=== PATIENT | male | born 1950 | race Caucasian/White ===

== ENCOUNTER → 2017-12-14 16:07 | Outpatient (CLI) | payer MEDICARE, MEDICAID | END | disposition home or self-care (01) | LOC: D.CT 16:07 | DX: M79.672 Pain in left foot (principal) ==

== ENCOUNTER 2018-02-27 19:43 | Emergency (ER) | payer MEDICARE, MEDICAID ==
[~2018-02-27] VITALS: Ht 167.6 cm; Wt 77.3 kg
[2018-02-27 19:46] VITALS: Ht 167.6 cm; Wt 77.3 kg
[2018-02-27] MEDS ORDERED: LISINOPRIL2.5 MG (19:47)
[2018-02-27] MEDS ORDERED: ZOCOR5 MG (19:48)
[2018-02-27] MEDS ORDERED: TYLENOL W/CODEI1 TAB PO (20:22)
[2018-02-27 21:56] VITALS: BP 141/83
== END 2018-02-27 21:53 | disposition home or self-care (01) ==
LOC: D.ER 19:43
DX: S00.31XA Abrasion of nose, initial encounter (principal); V73.5XXA Driver of bus injured in collision with car, pick-up truck or van in traffic accident, initial encounter; Y93.89 Activity, other specified; Y92.410 Unspecified street and highway as the place of occurrence of the external cause; S00.11XA Contusion of right eyelid and periocular area, initial encounter

== ENCOUNTER → 2018-03-17 17:02 | Outpatient (CLI) | payer MEDICARE, MEDICAID ==
[2018-02-27 19:46] VITALS: BMI 27.5
[~2018-03-17 17:02] MED LIST: LISINOPRIL2.5 MG; TYLENOL W/CODEI1 TAB PO; ZOCOR5 MG
== END | disposition home or self-care (01) ==
LOC: D.LABREF 17:02
DX: M17.11 Unilateral primary osteoarthritis, right knee (principal); Z11.8 Encounter for screening for other infectious and parasitic diseases

== ENCOUNTER 2018-04-07 11:59 | Inpatient (IN) | payer MEDICARE, MEDICAID ==
[~2018-04-07] VITALS: Ht 167.6 cm; Wt 77.3 kg
[2018-04-13] MEDS ORDERED: LISINOPRIL10 MG PO (14:11)
[2018-04-13] MEDS ORDERED: ZOCOR20 MG PO (14:12)
[2018-04-14 11:42] LABS: BASOPHILS 0.2 % (0-2); EOSINOPHILS 2.2 % (0-7); HEMATOCRIT 40.8 % (42.0-54.0); HEMOGLOBIN 13.7 g/dL (13.5-17.5); IMMATURE GRANULOCYTES 0.1 % (0-5); LYMPHOCYTES 23.5 % (15-50); MCH 28.7 pg (26.0-34.0); MCHC 33.6 g/dL (31.0-37.0); MCV 85.4 fL (80.0-100.0); MONOCYTES 6.2 % (2-11); NEUTROPHILS 67.8 % (40-80); PLATELET COUNT 232 10x3/uL (130-400); RBC 4.78 10x6/uL (4.20-6.10); WBC 8.7 10x3/uL (4.8-10.8)
[2018-04-14 11:53] LABS: CALC OSMOLALITY 279 mosm/kg (275-300); CALCIUM 8.7 mg/dL (8.5-10.1); CARBON DIOXIDE 26.3 mmol/L (21.0-32.0); CHLORIDE - SERUM 102 mmol/L (98-107); CREATININE - SERUM 0.8 mg/dL (0.6-1.3); GLUCOSE 99 mg/dL (74-106); POTASSIUM - SERUM 4.4 mmol/L (3.5-5.1); SODIUM 138 mmol/L (136-145); UREA NITROGEN 23 mg/dL (7-18); eGFR NON AFRICAN AMERICAN > 90 mL/min (90-120)
[2018-04-14 12:04] LABS: APTT 26.7 SECONDS (22.8-39.4); INR 0.95 (0.85-1.17); PROTIME 12.2 SECONDS (11.6-15.0)
[2018-04-14 12:19] LABS: APPEARANCE CLEAR (CLEAR); BILIRUBIN NEGATIVE (NEGATIVE); COLOR YELLOW (YELLOW); GLUCOSE NEGATIVE (NEGATIVE); KETONE NEGATIVE (NEGATIVE); NITRITE NEGATIVE (NEGATIVE); PROTEIN 1+ mg/dL (NEGATIVE); RED CELLS - URINE OCC /hpf (0-5); SPECIFIC GRAVITY 1.015 (1.005-1.020); UROBILINOGEN NORMAL (NORMAL); WHITE CELLS - URINE RARE /hpf (0-5)
[2018-04-14 12:20] LABS: BACTERIA FEW /hpf (NONE SEEN); EPITHELIAL CELLS OCC /hpf (0-5); MUCUS <1+ /lpf (NONE SEEN)
[2018-04-19] VITALS (11 sets, daily range): BP systolic 91–157; BP diastolic 50–87; Ht 167.6 cm; Wt 77.3 kg
--- NOTE | 2018-04-19 13:02 | OP ---
PATIENT NAME: AHMET KIM MEDICAL RECORD: [id number] :46 LOCATION:D.[facility] [place] ADMISSION DATE:04/19/18 SURGEON: THIAGO CHOE MD DATE OF OPERATION: 04/19/2018 PREOPERATIVE DIAGNOSIS: Severe osteoarthritis of the right knee. POSTOPERATIVE DIAGNOSIS: Severe osteoarthritis of the right knee. PROCEDURE: Right total knee arthroplasty. SURGEON: Thiago Choe MD REHAB SPECIALIST: DEXTER FLOR APN INTRAOPERATIVE COMPLICATIONS: None. SUMMARY OF PATHOLOGIC FINDINGS: The patient had severe tricompartmental osteoarthritis. IMPLANTS USED: Rehan Triathlon press fit total knee arthroplasty, size 5 distal femoral component, 5 tibial component, 9 polyethylene insert, and a 31 press fit patella. OPERATIVE SUMMARY IN DETAIL: After obtaining the appropriate preoperative orthopedic surgery consents as well as anesthetic consultation, evaluation and clearance, the patient was brought to the operating room and placed on the operating table in supine position. After general laryngeal mask airway was administered, tourniquet was placed on the proximal aspect of the right lower extremity. Right lower extremity was prepped and draped in routine sterile fashion. The leg was elevated and exsanguinated, tourniquet was inflated to 350 mmHg. Routine midline incision was taken for a paramedian arthrotomy. Patella was everted, distal femur was exposed. Soft tissue excision was done in the usual fashion. An intramedullary guide hole was created for distal intramedullary guided cuts. Distal femoral was cut. Tibia was then completely exposed. Further meniscectomy was performed followed by creation of intramedullary guide hole for a proximal tibial cut using intramedullary guidance. Proximal tibia was cut. Appropriate measurements were taken. Distal femoral chamfer cuts were made. Trials were put into place corresponding to the above-mentioned implants, taken through range of motion and found to be stable in all planes. Distal femoral and proximal tibial final preparations were followed by excision of the arthritic surface of the patella. Final patellar preparations were made for the 31 press fit button. After the knee was thoroughly irrigated with pulsatile lavage, the bony ends were dried. Final components were placed. The knee was taken through range of motion and found to be stable in all planes, including good patellar tracking. Wound was further irrigated and instilled with a gram of vancomycin and a gram of tobramycin paramedian arthrotomy was closed with #2 Ethibond by Dexter Flor as was final closure with #1 Vicryl, 2-0 Vicryl, and skin arnav. Sterile dressings were applied. Tourniquet was deflated. The patient was awakened, taken to recovery room in stable condition. All final needle and sponge counts were correct. TRANSINT:[id number] Voice Confirmation ID: [id number] DOCUMENT ID: [id number] OPERATIVE REPORT [id number] AHMET KIM MD, THIAGO JAIN at 1302 CC: [id number] DICTATION DATE: 04/19/18 1146 DERMATOLOGIST: 04/19/18 1245 ADM IN [place] [id number] [place] [id number]
[2018-04-20 04:00] VITALS: BP 138/74
[2018-04-20 04:46] LABS: HEMATOCRIT 37.4 % (42.0-54.0); HEMOGLOBIN 12.5 g/dL (13.5-17.5); MCH 28.5 pg (26.0-34.0); MCHC 33.4 g/dL (31.0-37.0); MCV 85.4 fL (80.0-100.0); MEAN PLATELET VOLUME 10.1 fL (7.4-10.4); RBC 4.38 10x6/uL (4.20-6.10)
[2018-04-20 09:23] VITALS: BP 152/84
[2018-04-20 14:21] VITALS: BP 132/71
[2018-04-20 17:18] VITALS: BP 151/56
[2018-04-20 20:00] VITALS: BP 135/66
[2018-04-21 04:00] VITALS: BP 149/71
[2018-04-21 05:13] LABS: HEMOGLOBIN 11.5 g/dL (13.5-17.5); MCH 27.9 pg (26.0-34.0); MCHC 32.9 g/dL (31.0-37.0); MEAN PLATELET VOLUME 10.3 fL (7.4-10.4); RBC 4.12 10x6/uL (4.20-6.10); RDW 14.5 % (11.5-14.5); WBC 9.5 10x3/uL (4.8-10.8)
[2018-04-21 08:00] VITALS: BP 153/68
--- NOTE | 2018-04-21 11:59 | MORECARE ---
CASE MANAGEMENT DISCHARGE SUMMARY PATIENT: AHMET KIM UNIT: [id number] ADM DATE: 04/19/18 AGE: 68 : 48 SEX: M ROOM/BED: D.2210 AUTHOR: KENNEDY,DOC PHYSICIAN: REFERRING PHYSICIAN: THIAGO CHOE MD DATE OF SERVICE: 04/21/18 Discharge Plan Patient Name: AHMET KIM Facility: [facility]:[place] : 1950 Planned Disposition: Home Health Service Anticipated Discharge Date: Discharge Date: Expected LOS: Initial Reviewer: [email or web address] Initial Review Date: 04/19/2018 Generated: 04/21/18 12:59 pm Comments DCP- Discharge Planning Updated by [email or web address]: Debbie Godoy on 04/21/18 10:[address] Patient's address is [address] [place] [address] DCP- Discharge Planning Updated by [email or web address]: Debbie Godoy on 04/21/18 10:[address] Patient Name: AHMET KIM Admission Status: Elective Accout number: [id number] Admission Date: 04-19-2018 : 1950 Admission Diagnosis: Attending: THIAGO CHOE Current LOS: 2 Anticipated DC Date: Planned Disposition: Home Health Service Primary Insurance: [facility] MEDICARE SOLUTIONS Discharge Planning Comments: CM met with patient to complete initial dc planning assessment. CM educated patient on the CM role and verbal consent given by patient to complete assessment. Patient lives at home with family in [place] and plans to return there at [place]. His family will be the one to drive him home. He anticipates to be discharged tomorrow. IMM served and explained. At discharge patient plans to return home with home health and feels this is a safe discharge. CM discussed availability of home health, rehab services, and medical equipment. [facility] for [facility]) [facility]) [facility]. He has a shower chair, walker, CPM at his house already that MD set up prior to surgery. CM will call and sent up HH with PT. CM will continue to follow and will assist as needed with dc plans/needs. Dairy Chemist: Debbie Godoy DCPIA - Discharge Planning Initial Assessment Updated by [email or web address]: Debbie Godoy on 04/21/18 11:52 am * Is the patient Alert and Oriented? Yes * How many steps to enter\exit or inside your home? * PCP JANICE * [facility]acy [facility] * Preadmission Environment Home with Family * ADLs Independent * Equipment Bedside Commode Rolling Walker Shower Chair Tub Bench Walker * Other Equipment CPM * List name and contact numbers for known caregivers / representatives who currently or will assist patient after discharge: FRANCIA ABDIALEXWALLACE [phone] * Verbal permission to speak to the caregivers and representatives has been obtained from the patient. N/A * Community resources currently utilized None * Additional services required to return to the preadmission environment? Yes * Can the patient safely return to the preadmission environment? Yes * Has this patient been hospitalized within the prior 30 days at any hospital? No Coverage Notice Reviewer: [id number] - Debbie Godoy Notice Issued Date-Time: 04/21/2018 11:45 Notice Type: IM Discharge Notice Notice Delivered To: Patient Relationship to Patient: Fire Department Battalion Chief Name: Delivery Method: HAND - Hand Delivered Karine Days: Prior Verbal Notification: Recipient Understood Notice: Yes Recipient Signature: Yes Med Rec Note Co-signed by Attending: Coverage Notice Comment: Patient Name: AHMET KIM Page 03895 at 1159 All edits/amendments must be made on the electronic document DICTATION DATE: 04/21/18 115 SCIENTIFIC ILLUSTRATOR: KAILEY 04/21/18 1158 RPT#: [id number] [place] DATE: STATUS: ADM IN [facility] [address] [place] [address] END OF REPORT
[2018-04-21 13:25] VITALS: BP 158/80
[2018-04-21 16:30] VITALS: BP 151/67
[2018-04-21 20:41] VITALS: BP 133/66
[2018-04-22 05:52] VITALS: BP 135/88
[2018-04-22] MEDS ORDERED: ELIQUIS2.5 MG PO ×2 (08:19→13:44)
[2018-04-22] MEDS ORDERED: HYDROCODON-ACE1 EA10 PO (08:19)
[2018-04-22 09:04] VITALS: BP 125/73
[2018-04-22 13:33] VITALS: BP 160/93
--- NOTE | 2018-04-22 13:57 | MORECARE ---
CASE MANAGEMENT DISCHARGE SUMMARY PATIENT: AHMET KIM UNIT: [id number] ADM DATE: 04/19/18 AGE: 68 : 48 SEX: M ROOM/BED: D.2210 AUTHOR: KENNEDY,DOC PHYSICIAN: REFERRING PHYSICIAN: THIAGO CHOE MD DATE OF SERVICE: 04/22/18 Discharge Plan Patient Name: AHMET KIM Facility: [facility]:[place] : 1950 Planned Disposition: Home Health Service Anticipated Discharge Date: Discharge Date: Expected LOS: Initial Reviewer: [email or web address] Initial Review Date: 04/19/2018 Generated: 04/22/18 2:57 pm Comments DCP- Discharge Planning Updated by [email or web address]: Debbie Godoy on 04/21/18 10:[address] Patient's address is [address] [place] [address] DCP- Discharge Planning Updated by [email or web address]: Debbie Godoy on 04/21/18 10:[address] Patient Name: AHMET KIM Admission Status: Elective Accout number: [id number] Admission Date: 04-19-2018 : 1950 Admission Diagnosis: Attending: THIAGO CHOE Current LOS: 2 Anticipated DC Date: Planned Disposition: Home Health Service Primary Insurance: [facility] MEDICARE SOLUTIONS Discharge Planning Comments: CM met with patient to complete initial dc planning assessment. CM educated patient on the CM role and verbal consent given by patient to complete assessment. Patient lives at home with family in [place] and plans to return there at [place]. His family will be the one to drive him home. He anticipates to be discharged tomorrow. IMM served and explained. At discharge patient plans to return home with home health and feels this is a safe discharge. CM discussed availability of home health, rehab services, and medical equipment. [facility] for home health 1) [facility] 2) [facility]. He has a shower chair, walker, CPM at his house already that MD set up prior to surgery. CM will call and sent up HH with PT. CM will continue to follow and will assist as needed with dc plans/needs. Pharmacy Helper: Debbie Godoy DCPIA - Discharge Planning Initial Assessment Updated by [email or web address]: Debbie Godoy on 04/21/18 11:52 am * Is the patient Alert and Oriented? Yes * How many steps to enter\exit or inside your home? * PCP JANICE * [facility]acy [facility] * Preadmission Environment Home with Family * ADLs Independent * Equipment Bedside Commode Rolling Walker Shower Chair Tub Bench Walker * Other Equipment CPM * List name and contact numbers for known caregivers / representatives who currently or will assist patient after discharge: FRANCIA KIM [phone] * Verbal permission to speak to the caregivers and representatives has been obtained from the patient. N/A * Community resources currently utilized None * Additional services required to return to the preadmission environment? Yes * Can the patient safely return to the preadmission environment? Yes * Has this patient been hospitalized within the prior 30 days at any hospital? No External Providers [facility] [place] Next Contact Date: Service Request Date: Service Type: Resolution: Reviewer: Comments: Coverage Notice Reviewer: [id number] - Debbie Godoy Notice Issued Date-Time: 04/21/2018 11:45 Notice Type: IM Discharge Notice Notice Delivered To: Patient Relationship to Patient: Seamless Tube Roller Name: Delivery Method: HAND - Hand Delivered Karine Days: Prior Verbal Notification: Recipient Understood Notice: Yes Recipient Signature: Yes Med Rec Note Co-signed by Attending: Coverage Notice Comment: Last DP export: 04/21/18 10:59 a Patient Name: AHMET KIM Page 28583 at 1357 All edits/amendments must be made on the electronic document DICTATION DATE: 04/22/18 1357 WEB CONTENT EXECUTIVE: KAILEY 04/22/18 1357 RPT#: [id number] DC DATE: STATUS: ADM IN [facility] [address] [place] [address] END OF REPORT
--- NOTE | 2018-04-22 14:08 | MORECARE ---
CASE MANAGEMENT DISCHARGE SUMMARY PATIENT: AHMET KIM UNIT: [id number] ADM DATE: 04/19/18 AGE: 68 : 48 SEX: M ROOM/BED: D.2210 AUTHOR: KENNEDY,DOC PHYSICIAN: REFERRING PHYSICIAN: THIAGO CHOE MD DATE OF SERVICE: 04/22/18 Discharge Plan Patient Name: AHMET KIM Facility: [facility]:[place] : 1950 Planned Disposition: Home Health Service Anticipated Discharge Date: Discharge Date: Expected LOS: Initial Reviewer: [email or web address] Initial Review Date: 04/19/2018 Generated: 04/22/18 3:08 pm Comments DCP- Discharge Planning Updated by [id number]: Debbie Godoy on 04/22/18 12:[address] Patient discharging home today with [facility], not other needs identified. CM to follow and assist as needed DCP- Discharge Planning Updated by [email or web address]: Debbie Godoy on 04/21/18 10:[address] Patient's address is [address] [place] [address] DCP- Discharge Planning Updated by [email or web address]: Debbie Godoy on 04/21/18 10:[address] Patient Name: AHMET KIM Admission Status: Elective Accout number: [id number] Admission Date: 04-19-2018 : 1950 Admission Diagnosis: Attending: THIAGO CHOE Current LOS: 2 Anticipated DC Date: Planned Disposition: Home Health Service Primary Insurance: [facility] MEDICARE SOLUTIONS Discharge Planning Comments: CM met with patient to complete initial dc planning assessment. CM educated patient on the CM role and verbal consent given by patient to complete assessment. Patient lives at home with family in [place] and plans to return there at [place]. His family will be the one to drive him home. He anticipates to be discharged tomorrow. IMM served and explained. At discharge patient plans to return home with home health and feels this is a safe discharge. CM discussed availability of home health, rehab services, and medical equipment. [facility] for home health 1) [facility] 2) [facility]. He has a shower chair, walker, CPM at his house already that MD set up prior to surgery. CM will call and sent up HH with PT. CM will continue to follow and will assist as needed with dc plans/needs. Records Clerk: Debbie Godoy DCPIA - Discharge Planning Initial Assessment Updated by [email or web address]: Debbie Godoy on 04/21/18 11:52 am * Is the patient Alert and Oriented? Yes * How many steps to enter\exit or inside your home? * PCP JANICE * [facility] * Preadmission Environment Home with Family * ADLs Independent * Equipment Bedside Commode Rolling Walker Shower Chair Tub Bench Walker * Other Equipment CPM * List name and contact numbers for known caregivers / representatives who currently or will assist patient after discharge: FRANCIA SHELLIWALLACE [phone] * Verbal permission to speak to the caregivers and representatives has been obtained from the patient. N/A * Community resources currently utilized None * Additional services required to return to the preadmission environment? Yes * Can the patient safely return to the preadmission environment? Yes * Has this patient been hospitalized within the prior 30 days at any hospital? No Coverage Notice Reviewer: [id number] - Debbie Godoy Notice Issued Date-Time: 04/21/2018 11:45 Notice Type: IM Discharge Notice Notice Delivered To: Patient Relationship to Patient: Global Logistics Analyst Name: Delivery Method: HAND - Hand Delivered Karine Days: Prior Verbal Notification: Recipient Understood Notice: Yes Recipient Signature: Yes Med Rec Note Co-signed by Attending: Coverage Notice Comment: Last DP export: 04/22/18 12:57 p Patient Name: AHMET KIM Page 25294 at 1408 All edits/amendments must be made on the electronic document DICTATION DATE: 04/22/18 1408 RAIL GRINDER: KAILEY 04/22/18 1408 RPT#: [id number] DC DATE: STATUS: ADM IN [facility] [address] [place] [address] END OF REPORT
== END 2018-04-22 18:31 | disposition home health service (06) | DRG 470 ==
LOC: D.SDCHOLD 04-14 10:00 → D.MS 04-19 08:00 → D.SDCHOLD 04-19 08:00 → D.MS 04-19 12:59 → D.SDCHOLD 04-19 14:00 → D.MS 04-22 18:31
PROVIDERS: ADMIT Orthopaedic Surgery
PROC: 0SRC0JZ Replacement of Right Knee Joint with Synthetic Substitute, Open Approach (ICD-10-PCS; principal; 2018-04-19 10:00)
DX: M17.11 Unilateral primary osteoarthritis, right knee (principal); I10 Essential (primary) hypertension

== ENCOUNTER → 2018-06-23 19:41 | Outpatient (CLI) | payer MEDICARE, MEDICAID ==
[2018-04-19 16:04] VITALS: BMI 27.5
[~2018-06-23 19:41] MED LIST changes: +ELIQUIS2.5 MG PO; +HYDROCODON-ACE1 EA10 PO; +LISINOPRIL10 MG PO; +ZOCOR20 MG PO
== END | disposition home or self-care (01) ==
LOC: D.LABREF 19:41
PROVIDERS: ATTEND Orthopaedic Surgery
DX: M17.12 Unilateral primary osteoarthritis, left knee (principal); Z11.8 Encounter for screening for other infectious and parasitic diseases

== ENCOUNTER 2018-07-07 11:48 | Inpatient (IN) | payer MEDICARE, MEDICAID ==
[~2018-07-07] VITALS: Ht 167.6 cm; Wt 79.5 kg
[2018-07-28 11:02] LABS: BASOPHILS 0.3 % (0-2); EOSINOPHILS 3.8 % (0-7); HEMATOCRIT 38.7 % (42.0-54.0); IMMATURE GRANULOCYTES 0.1 % (0-5); LYMPHOCYTES 26.8 % (15-50); MCH 27.3 pg (26.0-34.0); MCHC 33.6 g/dL (31.0-37.0); MCV 81.1 fL (80.0-100.0); MEAN PLATELET VOLUME 9.8 fL (7.4-10.4); MONOCYTES 6.5 % (2-11); NEUTROPHILS 62.5 % (40-80); PLATELET COUNT 188 10x3/uL (130-400); RBC 4.77 10x6/uL (4.20-6.10); RDW 15.4 % (11.5-14.5); WBC 7.6 10x3/uL (4.8-10.8)
[2018-07-28 11:04] LABS: CALC OSMOLALITY 274 mosm/kg (275-300); CALCIUM 8.8 mg/dL (8.5-10.1); CHLORIDE - SERUM 102 mmol/L (98-107); CREATININE - SERUM 0.9 mg/dL (0.6-1.3); GLUCOSE 94 mg/dL (74-106); POTASSIUM - SERUM 4.2 mmol/L (3.5-5.1); SODIUM 136 mmol/L (136-145); UREA NITROGEN 22 mg/dL (7-18); eGFR NON AFRICAN AMERICAN 89 mL/min (90-120)
[2018-07-28 11:05] LABS: APPEARANCE HAZY (CLEAR); BILIRUBIN NEGATIVE (NEGATIVE); COLOR YELLOW (YELLOW); GLUCOSE NEGATIVE (NEGATIVE); KETONE NEGATIVE (NEGATIVE); NITRITE NEGATIVE (NEGATIVE); PROTEIN NEGATIVE (NEGATIVE); SPECIFIC GRAVITY 1.005 (1.005-1.020); UROBILINOGEN NORMAL (NORMAL)
[2018-07-28 11:06] LABS: APTT 26.1 SECONDS (22.8-39.4); INR 1.01 (0.85-1.17); PROTIME 12.8 SECONDS (11.6-15.0)
[2018-07-28] MEDS ORDERED: IBUPROFEN400 MG PO (11:24)
[2018-08-02 10:12] VITALS: BP 182/85; BMI 27.5
[2018-08-02 13:26] VITALS: BP 154/81
[2018-08-02 15:00] VITALS: BP 154/81; Ht 167.6 cm; Wt 79.5 kg
[2018-08-02 17:39] VITALS: BP 128/70
[2018-08-02 20:34] VITALS: BP 144/67
[2018-08-03 01:04] VITALS: BP 123/73
[2018-08-03 05:58] VITALS: BP 132/64
[2018-08-03 06:15] LABS: HEMATOCRIT 38.1 % (42.0-54.0); HEMOGLOBIN 12.6 g/dL (13.5-17.5); MCH 26.9 pg (26.0-34.0); MCHC 33.1 g/dL (31.0-37.0); MCV 81.2 fL (80.0-100.0); MEAN PLATELET VOLUME 10.6 fL (7.4-10.4); RBC 4.69 10x6/uL (4.20-6.10); RDW 15.5 % (11.5-14.5); WBC 12.8 10x3/uL (4.8-10.8)
[2018-08-03 08:12] VITALS: BP 165/85
[2018-08-03 12:54] VITALS: BP 162/83
--- NOTE | 2018-08-03 16:17 | MORECARE ---
CASE MANAGEMENT DISCHARGE SUMMARY PATIENT: AHMET KIM UNIT: [id number] ADM DATE: 08/02/18 AGE: 68 : 48 SEX: M ROOM/BED: D.2208 AUTHOR: GERRY BENAVIDES PHYSICIAN: REFERRING PHYSICIAN: THIAGO CHOE MD DATE OF SERVICE: 08/03/18 Discharge Plan Patient Name: AHMET KIM [facility] [facility] 1950 Planned Disposition: Home Health Service Anticipated Discharge Date: Discharge Date: Expected LOS: Initial Reviewer: [email or web address] Initial Review Date: 08/02/2018 Generated: 08/03/18 5:17 pm DCPIA - Discharge Planning Initial Assessment Updated by [email or web address]: Debbie Godoy on 08/03/18 4:16 pm * Is the patient Alert and Oriented? Yes * How many steps to enter\exit or inside your home? * PCP Kylah * Pharmacy [facility] * Preadmission Environment Home with Family * ADLs Independent * Equipment Rolling Walker Shower Chair * Other Equipment CPM * List name and contact numbers for known caregivers / representatives who currently or will assist patient after discharge: Regina Fordj.w. ruby memorial hospitaldrew [phone] * Verbal permission to speak to the caregivers and representatives has been obtained from the patient. N/A * Community resources currently utilized None * Additional services required to return to the preadmission environment? Yes * Can the patient safely return to the preadmission environment? Yes * Has this patient been hospitalized within the prior 30 days at any hospital? No Patient Name: AHMET KIM Page 19129 at 1617 All edits/amendments must be made on the electronic document DICTATION DATE: 08/03/18 161 GRANITE SETTER: KAILEY 08/03/181615 RPT#: [id number] DC DATE: STATUS: ADM IN [facility] [address] [place] [address] END OF REPORT
--- NOTE | 2018-08-03 16:27 | MORECARE ---
CASE MANAGEMENT DISCHARGE SUMMARY PATIENT: AHMET KIM UNIT: [id number] ADM DATE: 08/02/18 AGE: 68 : 48 SEX: M ROOM/BED: D.2204 AUTHOR: KENNEDY,DOC PHYSICIAN: REFERRING PHYSICIAN: THIAGO CHOE MD DATE OF SERVICE: 08/03/18 Discharge Plan Patient Name: AHMET KIM Facility: [facility]:[place] : 1950 Planned Disposition: Home Health Service Anticipated Discharge Date: Discharge Date: Expected LOS: Initial Reviewer: [email or web address] Initial Review Date: 08/02/2018 Generated: 08/03/18 5:26 pm Comments DCP- Discharge Planning Updated by [email or web address]: Debbie Godoy on 08/03/18 3:[address] Patient Name: AHMET KIM Admission Status: Elective Accout number: [id number] Admission Date: 08-02-2018 : 1950 Admission Diagnosis: Attending: THIAGO CHOE Current LOS: 1 Anticipated DC Date: Planned Disposition: Home Health Service Primary Insurance: [facility] MEDICARE SOLUTIONS Discharge Planning Comments: CM met with patient to complete initial dc planning assessment. CM educated patient on the CM role and verbal consent given by patient to complete assessment. Patient lives at home with his cousins where he is independent with his care. At discharge patient plans to return home and feels this is a safe discharge. He stated that one of his cousins will drive him home. CM discussed availability of home health, rehab services, and medical equipment. He would like [facility]OR[facility] Macias signed and placed in chart. I called Millie and sent referral to her. He has a walker and shower chair at home & his CPM has been delivered to his home already. [facility] served and explained. Patient denied known discharge needs at this time. CM will continue to follow and will assist as needed with dc plans/needs. Sorter/Assay Tech: Debbie Godoy DCPIA - Discharge Planning Initial Assessment Updated by [email or web address]: Debbie Godoy on 08/03/18 4:16 pm * Is the patient Alert and Oriented? Yes * How many steps to enter\exit or inside your home? * PCP Kylah * Pharmacy [facility] * Preadmission Environment Home with Family * ADLs Independent * Equipment Rolling Walker Shower Chair * Other Equipment CPM * List name and contact numbers for known caregivers / representatives who currently or will assist patient after discharge: Regina Rand [phone] * Verbal permission to speak to the caregivers and representatives has been obtained from the patient. N/A * Community resources currently utilized None * Additional services required to return to the preadmission environment? Yes * Can the patient safely return to the preadmission environment? Yes * Has this patient been hospitalized within the prior 30 days at any hospital? No External Providers External Provider: [facility] Next Contact Date: Service Request Date: Service Type: Resolution: Reviewer: Comments: Coverage Notice Reviewer: [email or web address] Isai Godoy Notice Issued Date-Time: 08/03/2018 16:10 Notice Type: IM Discharge Notice Notice Delivered To: Patient Relationship to Patient: Instructional Leader Name: Delivery Method: HAND - Hand Delivered Karine Days: Prior Verbal Notification: Recipient Understood Notice: Yes Recipient Signature: Yes Med Rec Note Co-signed by Attending: Coverage Notice Comment: Reviewer: [id number] Pablo Godoy Notice Issued Date-Time: 08/03/2018 16:10 Notice Type: Patient Choice Letter Notice Delivered To: Patient Relationship to Patient: Instructional Leader Name: Delivery Method: - Karine Days: Prior Verbal Notification: Recipient Understood Notice: Yes Recipient Signature: Yes Med Rec Note Co-signed by Attending: Coverage Notice Comment: jordana with [facility] Last DP export: 08/03/18 3:17 p Patient Name: AHMET KIM Page 90513 at 1627 All edits/amendments must be made on the electronic document DICTATION DATE: 08/03/181625 CHARGE NURSE: KAILEY 08/03/181625 RPT#: [id number] DC DATE: STATUS: ADM IN [facility] [address] [place] [address] END OF REPORT
[2018-08-03 16:34] VITALS: BP 161/72
[2018-08-03 20:55] VITALS: BP 164/75
[2018-08-04 01:22] VITALS: BP 153/79
[2018-08-04 05:10] LABS: MCH 26.5 pg (26.0-34.0); MCHC 32.4 g/dL (31.0-37.0); MCV 81.7 fL (80.0-100.0); MEAN PLATELET VOLUME 10.4 fL (7.4-10.4); RBC 4.53 10x6/uL (4.20-6.10); RDW 15.5 % (11.5-14.5); WBC 9.7 10x3/uL (4.8-10.8)
[2018-08-04 05:55] VITALS: BP 157/74
[2018-08-04 09:45] VITALS: BP 148/67
[2018-08-04 14:12] VITALS: BP 156/73
[2018-08-04 17:22] VITALS: BP 136/85
[2018-08-04 20:51] VITALS: BP 147/62
[2018-08-05 01:35] VITALS: BP 140/60
[2018-08-05 06:31] VITALS: BP 170/78
[2018-08-05] MEDS ORDERED: ELIQUIS2.5 MG PO (07:46)
[2018-08-05] MEDS ORDERED: HYDROCODON-ACE1 EA10 PO (07:47)
[2018-08-05 10:10] VITALS: BP 176/90
--- NOTE | 2018-08-05 11:20 | MORECARE ---
CASE MANAGEMENT DISCHARGE SUMMARY PATIENT: AHMET KIM UNIT: [id number] ADM DATE: 08/02/18 AGE: 68 : 48 SEX: M ROOM/BED: D.2207 AUTHOR: GERRY BENAVIDES PHYSICIAN: REFERRING PHYSICIAN: THIAGO CHOE MD DATE OF SERVICE: 08/05/18 Discharge Plan Patient Name: AHMET KIM Facility: [facility]:[place] : 1950 Planned Disposition: Home Health Service Anticipated Discharge Date: Discharge Date: Expected LOS: Initial Reviewer: [email or web address] Initial Review Date: 08/02/2018 Generated: 08/05/18 12:20 pm Comments DCP- Discharge Planning Updated by [email or web address]: Debbie Godoy on 08/05/18 10:[address] Patient discharging home today with [facility]. I called and spoke with Tish in [facility]. CM to follow and assist as needed DCP- Discharge Planning Updated by [email or web address]: Debbie Godoy on 08/03/18 3:[address] Patient Name: AHMET KIM Admission Status: Elective Accout number: [id number] Admission Date: 08-02-2018 : 1950 Admission Diagnosis: Attending: THIAGO CHOE Current LOS: 1 Anticipated DC Date: Planned Disposition: Home Health Service Primary Insurance: [facility] MEDICARE SOLUTIONS Discharge Planning Comments: CM met with patient to complete initial dc planning assessment. CM educated patient on the CM role and verbal consent given by patient to complete assessment. Patient lives at home with his cousins where he is independent with his care. At discharge patient plans to return home and feels this is a safe discharge. He stated that one of his cousins will drive him home. CM discussed availability of home health, rehab services, and medical equipment. He would like [facility], JORDANA signed and placed in chart. I called Millie and sent referral to her. He has a walker and shower chair at home & his CPM has been delivered to his home already. [facility] served and explained. Patient denied known discharge needs at this time. CM will continue to follow and will assist as needed with dc plans/needs. Tractor Trailer Technician: Debbie Godoy DCPIA - Discharge Planning Initial Assessment Updated by [email or web address]: Debbie Godoy on 08/03/18 4:16 pm * Is the patient Alert and Oriented? Yes * How many steps to enter\exit or inside your home? * PCP Kylah * Pharmacy [facility] * Preadmission Environment Home with Family * ADLs Independent * Equipment Rolling Walker Shower Chair * Other Equipment CPM * List name and contact numbers for known caregivers / representatives who currently or will assist patient after discharge: Regina Nesbittdrew [phone] * Verbal permission to speak to the caregivers and representatives has been obtained from the patient. N/A * Community resources currently utilized None * Additional services required to return to the preadmission environment? Yes * Can the patient safely return to the preadmission environment? Yes * Has this patient been hospitalized within the prior 30 days at any hospital? No Coverage Notice Reviewer: [email or web address] Isai Godoy Notice Issued Date-Time: 08/03/2018 16:10 Notice Type: IM Discharge Notice Notice Delivered To: Patient Relationship to Patient: Wood Floor Refinisher Name: Delivery Method: HAND - Hand Delivered Karine Days: Prior Verbal Notification: Recipient Understood Notice: Yes Recipient Signature: Yes Med Rec Note Co-signed by Attending: Coverage Notice Comment: Reviewer: [email or web address] Isai Godoy Notice Issued Date-Time: 08/03/2018 16:10 Notice Type: Patient Choice Letter Notice Delivered To: Patient Relationship to Patient: Wood Floor Refinisher Name: Delivery Method: - Karine Days: Prior Verbal Notification: Recipient Understood Notice: Yes Recipient Signature: Yes Med Rec Note Co-signed by Attending: Coverage Notice Comment: jordana with [facility] Last DP export: 08/03/18 3:27 p Patient Name: AHMET KIM Page 55703 at 1120 All edits/amendments must be made on the electronic document DICTATION DATE: 08/05/18 111 CATALOGUE LIBRARIAN: KAILEY 08/05/18 111 RPT#: [id number] DC DATE: STATUS: ADM IN [facility] [address] [place] [address] END OF REPORT
--- NOTE | 2018-08-05 11:34 | OP ---
PATIENT NAME: AHMET KIM MEDICAL RECORD: [id number] :46 LOCATION:[id number] ADMISSION DATE:08/02/18 SURGEON: THIAGO CHOE MD DATE OF OPERATION: 08/02/2018 PREOPERATIVE DIAGNOSIS: Severe degenerative arthritis of the left knee. POSTOPERATIVE DIAGNOSIS: Severe degenerative arthritis of the left knee. PROCEDURE: Left total knee arthroplasty. SURGEON: Thiago Choe MD COOKER OPERATOR: Conner Flor ANESTHESIA: General. INTRAOPERATIVE COMPLICATIONS: None. SUMMARY OF PATHOLOGIC FINDINGS: As in preoperative diagnosis, the patient had severe degenerative arthritis tricompartmentally. IMPLANTS USED: Triathlon press fit total knee arthroplasty system, size 5 distal femur, size 5 proximal tibia, size 5 x 9 mm tibial bearing insert CS, size 9 x 31 press fit patella. OPERATIVE SUMMARY IN DETAIL: After obtaining the appropriate preoperative orthopedic surgery consent as well as anesthetic consultation, evaluation, and clearance, the patient was brought to the operating room and placed on the operating table in supine position. After general laryngeal mask airway was administered, tourniquet was placed about the proximal aspect of the left lower extremity. Left lower extremity was then prepped and draped in routine sterile fashion. The leg was elevated, exsanguinated and tourniquet was inflated to 350 mmHg. Routine midline incision was taken down to the paramedian arthrotomy. Table was everted, distal femur was exposed. Soft tissue excision was done in the usual fashion. Distal intramedullary guide hole was created for intramedullary guided cut of the distal femur. Having completed this, attention was turned to the proximal tibia with complete exposure of the proximal tibia and further soft tissue removal. An intramedullary guide hole was created for proximal tibial cut. Proximal tibia cut was made. This was followed by taking the appropriate measurements. Chamfer cuts made on the distal femur. Trials were put into place corresponding to the above implants taken through range of motion and found to be stable in all planes. After final distal femoral and proximal tibial preparations were made, the patella arthritic surface was excised and preparations were made for a size 31 x 9 patellar component. Wound was copiously irrigated. The bone ends were dried, press fit components were put into place with excellent fixation. They were taken through a range of motion and found to be stable in all planes. At this point, Dexter Flor took over and closed the wound after placing a gram of vancomycin and a gram of tobramycin. Paramedian arthrotomy closed with #2-0 Ethibond followed by #1 Vicryl, 2-0 Vicryl and skin arnav. Sterile dressings were applied. The patient was awakened and taken to the recovery room in stable condition. All final needle and sponge counts were correct. TRANSINT:[id number] Voice Confirmation ID: [id number] DOCUMENT ID: [id number] OPERATIVE REPORT [id number] AHMET KIM MD, THIAGO JAIN at 1134 CC: [id number] DICTATION DATE: 08/04/18 1121 CAREER MANAGER: 08/04/18 1256 ADM IN [facility] [address] [place] [address]
== END 2018-08-05 15:03 | disposition home health service (06) | DRG 470 ==
LOC: D.SDCHOLD 07-28 10:00 → D.MS 08-02 08:35 → D.SDCHOLD 08-02 08:35 → D.MS 08-02 12:41
PROVIDERS: ADMIT Orthopaedic Surgery; ATTEND Orthopaedic Surgery
PROC: 0SRD0J9 Replacement of Left Knee Joint with Synthetic Substitute, Cemented, Open Approach (ICD-10-PCS; principal; 2018-08-02 10:15)
DX: M17.12 Unilateral primary osteoarthritis, left knee (principal); I10 Essential (primary) hypertension